=== PATIENT | male | born 1930 | race Caucasian/White ===

== ENCOUNTER 2018-08-22 12:41 | Emergency (ER) | payer MEDICARE ==
[~2018-08-22] VITALS: Ht 175.3 cm; Wt 72.7 kg
[~2018-08-22 12:41] MED LIST: ASPIRIN EC81 M1 PO; BETAPACE 80 MG80 MG PO; ELIQUIS2.5 MG; ELIQUIS5 MG PO; FELODIPINE ER10 MG PO; LIPITOR20 MG PO; NITROQUICK0.4 MG SL; PROSCAR5 MG PO; VASOTEC20 MG PO; ZOCOR20 MG PO
[2018-08-22 12:48] VITALS: BP 148/93; Ht 175.3 cm; Wt 72.7 kg
[2018-08-22 13:46] LABS: BASOPHILS 0.9 % (0-2); EOSINOPHILS 0.3 % (0-7); HEMATOCRIT 38.3 % (42.0-54.0); HEMOGLOBIN 12.9 g/dL (13.5-17.5); IMMATURE GRANULOCYTES 0.2 % (0-5); MCH 28.4 pg (26.0-34.0); MCHC 33.7 g/dL (31.0-37.0); MCV 84.2 fL (80.0-100.0); MEAN PLATELET VOLUME 10.5 fL (7.4-10.4); MONOCYTES 12.1 % (2-11); NEUTROPHILS 62.5 % (40-80); RBC 4.55 10x6/uL (4.20-6.10); RDW 15.7 % (11.5-14.5); WBC 5.8 10x3/uL (4.8-10.8)
[2018-08-22 14:00] LABS: PLATELET COUNT 131 10x3/uL (130-400)
[2018-08-22 14:07] LABS: ALBUMIN 3.4 g/dL (3.4-5.0); ALKALINE PHOSPHATASE 92 U/L (46-116); ALT (SGPT) 18 U/L (10-68); BILIRUBIN - TOTAL 1.35 mg/dL (0.2-1.3); CALC OSMOLALITY 282 mosm/kg (275-300); CHLORIDE - SERUM 105 mmol/L (98-107); CREATININE - SERUM 0.8 mg/dL (0.6-1.3); GLUCOSE 124 mg/dL (74-106); POTASSIUM - SERUM 3.1 mmol/L (3.5-5.1); PROTEIN - SERUM 6.2 g/dL (6.4-8.2); SODIUM 141 mmol/L (136-145); UREA NITROGEN 14 mg/dL (7-18); eGFR NON AFRICAN AMERICAN > 90 mL/min (90-120)
[2018-08-22 14:15] LABS: CHOL - HDL RATIO 2.8 ratio (2.3-4.9); CHOLESTEROL, TOTAL 122 mg/dL (0-200); HDL CHOLESTEROL 44 mg/dL (32-96); LDL CHOLESTEROL 61 mg/dL (0-100); LDL-HDL RATIO 1.4 ratio (1.5-3.5); MAGNESIUM - SERUM 1.7 mg/dL (1.8-2.4); THYROID STIMULATING HORMONE 0.26 uIU/mL (0.36-3.74); TRIGLYCERIDE 88 mg/dL (30-200)
[2018-08-22 14:45] LABS: APTT 28.7 SECONDS (22.8-39.4); INR 1.26 (0.85-1.17); PROTIME 15.3 SECONDS (11.6-15.0)
[2018-08-23 09:19] LABS: FOLATE (FOLIC ACID) - SERUM >20.0 ng/mL (>3.0)
== END 2018-08-22 18:02 | disposition home or self-care (01) ==
LOC: D.ER 12:41
PROVIDERS: Emergency Medicine
DX: R41.0 Disorientation, unspecified (principal); E87.6 Hypokalemia; E83.42 Hypomagnesemia